=== PATIENT | female | born 1960 | race American Indian/Alaskan Native ===

== ENCOUNTER 2018-11-01 09:43 | Emergency (ER) | payer MEDICARE ==
[2018-11-01] MEDS ORDERED: PROVENTIL IH ONE (11:02)
[2018-11-01] MEDS ORDERED: TESSALON PERLES PO ONE (11:03)
[2018-11-01] MEDS ORDERED: SOLU-Medrol IM ONE (11:04)
[2018-11-01] MEDS ORDERED: ULTRAM PO ONE (11:16)
[2018-11-01 11:36] VITALS: BP 138/86
--- NOTE | 2018-11-01 11:49 | Emergency Department Report ---
ED General Adult HPI - General Chief complaint: Upper Respiratory Infection Stated complaint: FLU LIKE Time Seen by Provider: 11/01/18 10:43 Source: patient Mode of arrival: Ambulatory Limitations: No Limitations - History of Present Illness Initial comments: Patient presents to emergency department with a chief complaint of a cough for the last 3 days. Patient states that she has not had any relief from a cough [id number] medications. Patient states that she is coughing so much and so intensely that her chest hurts when she coughs. Patient denies any janine chest pain, abdominal pain, headache. -: Gradual Severity scale (0 -10): 1 Quality: aching Consistency: constant Improves with: none Worsens with: none Associated Symptoms: denies other symptoms Treatments Prior to Arrival: none - Related Data Previous Rx's Medication Instructions Recorded Last Taken Type ALBUTEROL Inhaler (OR & NICU) 2 puff IH Q4HR PRN #1 inhalation 11/01/18 Unknown Rx [ProAir HFA Inhaler] Benzonatate [Tessalon Perles] 100 mg PO Q8HR PRN #20 capsule 11/01/18 Unknown Rx Hydrocodone/Chlorphen P-Stirex 473 ml PO Q12HR #180 aidan.er.12h 11/01/18 Unknown Rx [Tussionex Pennkinetic Susp] predniSONE [Deltasone] 20 mg PO DAILY #15 tablet 11/01/18 Unknown Rx Allergies Allergy/AdvReac Type Severity Reaction Status Date / Time codeine Allergy Rash Verified 11/01/18 10:07 Penicillins Allergy Rash Verified 11/01/18 10:07 ED Review of Systems ROS: Stated complaint: FLU LIKE Other details as noted in HPI Comment: All other systems reviewed and negative Constitutional: denies: chills, fever Eyes: denies: eye pain, eye discharge, vision change ENT: denies: ear pain, throat pain Respiratory: cough. denies: shortness of breath, wheezing Cardiovascular: denies: chest pain, palpitations Endocrine: no symptoms reported Gastrointestinal: denies: abdominal pain, nausea, diarrhea Genitourinary: denies: urgency, dysuria, discharge Musculoskeletal: denies: back pain, joint swelling, arthralgia Skin: denies: rash, lesions Neurological: denies: headache, weakness, paresthesias Psychiatric: denies: anxiety, depression Hematological/Lymphatic: denies: easy bleeding, easy bruising ED Past Medical Hx - Social History Smoking Status: Current Every Day Smoker Substance Use Type: None - Medications Home Medications: Home Medications Medication Instructions Recorded Confirmed Last Taken Type ALBUTEROL Inhaler (OR & NICU) 2 puff IH Q4HR PRN #1 inhalation 11/01/18 Unknown Rx [ProAir HFA Inhaler] Benzonatate [Tessalon Perles] 100 mg PO Q8HR PRN #20 capsule 11/01/18 Unknown Rx Hydrocodone/Chlorphen P-Stirex 473 ml PO Q12HR #180 aidan.er.12h 11/01/18 Unknown Rx [Tussionex Pennkinetic Susp] predniSONE [Deltasone] 20 mg PO DAILY #15 tablet 11/01/18 Unknown Rx ED Physical Exam - General Limitations: No Limitations General appearance: alert, in no apparent distress - Head Head exam: Present: atraumatic, normocephalic - Eye Eye exam: Present: normal appearance, PERRL, EOMI - ENT ENT exam: Present: mucous membranes moist - Neck Neck exam: Present: normal inspection - Respiratory Respiratory exam: Present: normal lung sounds bilaterally, wheezes. Absent: respiratory distress, rales, rhonchi - Cardiovascular Cardiovascular Exam: Present: regular rate, normal rhythm. Absent: systolic murmur, diastolic murmur, rubs, gallop - GI/Abdominal GI/Abdominal exam: Present: soft, normal bowel sounds. Absent: distended, tenderness - Extremities Exam Extremities exam: Present: normal inspection - Back Exam Back exam: Present: normal inspection - Neurological Exam Neurological exam: Present: alert, oriented X3, CN II-XII intact. Absent: motor sensory deficit - Psychiatric Psychiatric exam: Present: normal affect, normal mood - Skin Skin exam: Present: warm, dry, intact, normal color. Absent: rash ED Course Vital Signs 11/01/18 11/01/18 11/01/18 10:05 11:35 12:28 Temperature 98.1 F Pulse Rate 103 H 81 Respiratory 16 16 20 Rate Blood Pressure 136/88 Blood Pressure 138/86 [Left] O2 Sat by Pulse 98 98 100 Oximetry ED Medical Decision Making - Radiology Data Radiology results: report reviewed - Medical Decision Making Discussed results with patient Patient states she has improved with the breathing treatment Critical care attestation.: If time is entered above; I have spent that time in minutes in the direct care of this critically ill patient, excluding procedure time. ED Disposition Clinical Impression: Bronchitis Disposition: DC-01 TO HOME OR SELFCARE Is pt being admited?: No Does the pt Need Aspirin: No Condition: Stable Instructions: Acute Bronchitis (ED) Additional Instructions: return if worse Prescriptions: ALBUTEROL Inhaler (OR & NICU) [ProAir HFA Inhaler] 2 puff IH Q4HR PRN #1 inhalation PRN Reason: Shortness Of Breath Benzonatate [Tessalon Perles] 100 mg PO Q8HR PRN #20 capsule PRN Reason: Cough Hydrocodone/Chlorphen P-Stirex [Tussionex Pennkinetic Susp] 473 ml PO Q12HR #180 aidan.er.12h predniSONE [Deltasone] 20 mg PO DAILY #15 tablet Referrals: PRIMARY CARE, [Primary Care Provider] - 3-5 Days [facility] [Provider Group] - 3-5 Days [facility] [Provider Group] - 3-5 Days MICHELE ENRIQUE MD [Staff Physician] - 3-5 Days Time of Disposition: 12:44
--- NOTE | 2018-11-01 12:05 | XRay Report ---
PORTABLE CHEST INDICATION: Cough. COMPARISON: None similar at this institution. FINDINGS: Portable, frontal chest radiograph suggests top normal heart size. Normal mediastinal and hilar contours. Clear lungs. Intact bones. Few extrinsic artifacts. CONCLUSION: No acute chest process, as described. Thank you for the opportunity to participate in this patient's care.
== END 2018-11-01 13:17 | disposition home or self-care (01) ==
LOC: ED 09:43
DX: J40 Bronchitis, not specified as acute or chronic (principal); F17.200 Nicotine dependence, unspecified, uncomplicated; Z88.5 Allergy status to narcotic agent; Z88.0 Allergy status to penicillin
CPT/HCPCS: 71045; 94640; 96372; 99283; J2930

== ENCOUNTER 2020-11-28 11:21 | Emergency (ER) | payer MEDICARE, OTHER ==
[2020-11-28] MEDS ORDERED: IBUPROFEN 800 MG TAB PO ONE (11:31)
[2020-11-28] MEDS ORDERED: oxyCODONE /ACETAMINOPHEN 5-325MG TAB PO ONE (11:33)
--- NOTE | 2020-11-28 11:54 | Emergency Department Report ---
ED Extremity Problem HPI - General Chief complaint: Extremity Injury, Lower Stated complaint: FALL/RT FOOT PAIN Time Seen by Provider: 11/28/20 11:27 Source: EMS Mode of arrival: Stretcher Limitations: No Limitations - History of Present Illness Initial comments: Patient is a 60-year-old F [place] female with no significant past medical history who is here status post a fall in the shower. Patient states she fell and she has pain in the right midfoot with some mild lateral ankle discomfort as well. Pain is estimated at 6 out of 10 in severity. She has not been able to bear weight. Patient states she has no other injury at this time. - Related Data Previous Rx's Medication Instructions Recorded Last Taken Type Albuterol Mdi (or & Nicu Only) 2 puff IH Q4HR PRN #1 inhalation 11/01/18 Unknown Rx [ProAir HFA Inhaler] Benzonatate [Tessalon Perles] 100 mg PO Q8HR PRN #20 capsule 11/01/18 Unknown Rx Hydrocodone/Chlorphen P-Stirex 473 ml PO Q12HR #180 aidan.er.12h 11/01/18 Unknown Rx [Tussionex Pennkinetic Susp] predniSONE [Deltasone] 20 mg PO DAILY #15 tablet 11/01/18 Unknown Rx HYDROcodone/APAP 5-325 [Mulino 1 each PO Q6HR PRN #14 tablet 11/28/20 Unknown Rx 5/325] Ketorolac [Toradol] 10 mg PO Q6H PRN #12 tablet 11/28/20 Unknown Rx Allergies Allergy/AdvReac Type Severity Reaction Status Date / Time codeine Allergy Rash Verified 11/01/18 10:07 Penicillins Allergy Rash Verified 11/01/18 10:07 ED Review of Systems ROS: Stated complaint: FALL/RT FOOT PAIN Other details as noted in HPI Comment: All other systems reviewed and negative ED Past Medical Hx - Social History Smoking Status: Current Every Day Smoker Substance Use Type: None - Medications Home Medications: Home Medications Medication Instructions Recorded Confirmed Last Taken Type Albuterol Mdi (or & Nicu Only) 2 puff IH Q4HR PRN #1 inhalation 11/01/18 Unknown Rx [ProAir HFA Inhaler] Benzonatate [Tessalon Perles] 100 mg PO Q8HR PRN #20 capsule 11/01/18 Unknown Rx Hydrocodone/Chlorphen P-Stirex 473 ml PO Q12HR #180 aidan.er.12h 11/01/18 Unknown Rx [Tussionex Pennkinetic Susp] predniSONE [Deltasone] 20 mg PO DAILY #15 tablet 11/01/18 Unknown Rx HYDROcodone/APAP 5-325 [Mulino 1 each PO Q6HR PRN #14 tablet 11/28/20 Unknown Rx 5/325] Ketorolac [Toradol] 10 mg PO Q6H PRN #12 tablet 11/28/20 Unknown Rx ED Physical Exam - General Limitations: No Limitations General appearance: alert, in no apparent distress - Head Head exam: Present: atraumatic, normocephalic - Eye Eye exam: Present: normal appearance, PERRL, EOMI - ENT ENT exam: Present: mucous membranes moist - Neck Neck exam: Present: normal inspection - Respiratory Respiratory exam: Present: normal lung sounds bilaterally. Absent: respiratory distress, wheezes, rales, rhonchi - Cardiovascular Cardiovascular Exam: Present: regular rate - GI/Abdominal GI/Abdominal exam: Absent: distended - Extremities Exam Extremities exam: Present: normal inspection - Expanded Lower Extremity Exam Right Ankle exam: Present: swelling (lateral malleolus) Foot/Toe exam: Present: tenderness (,id foot laterally), swelling - Back Exam Back exam: Present: normal inspection - Neurological Exam Neurological exam: Present: alert, oriented X3 - Psychiatric Psychiatric exam: Present: normal affect, normal mood - Skin Skin exam: Present: warm, dry, intact, normal color. 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 COMPARISON: None available. FINDINGS: Right foot: Acute mildly displaced fractures of the third and fourth metatarsal bases. There is also irregularity of the medial second metatarsal base with abnormal widening of Lisfranc interval. No additional fracture is identified. Mild soft tissue swelling of the dorsum of the foot. Right ankle: No acute fracture or malalignment. Ankle mortise is symmetric. Talar dome is intact. No focal soft tissue abnormality. IMPRESSION: Fractures of the second through fourth metatarsal bases with mild abnormal widening of the Lisfranc interval, compatible with Lisfranc injury. Signer Name: Darius Zamora MD Signed: 11/28/2020 11:29 AM Workstation Name: [email or web address] - Medical Decision Making Patient with a right-sided Lisfranc injury. Spoke with Dr. Polanco with podiatry and states the patient should be splinted and be nonweightbearing he will see the patient in next several days. He did request a CT of the foot be performed which will be done. Patient discharged stable condition. Critical care attestation.: If time is entered above; I have spent that time in minutes in the direct care of this critically ill patient, excluding procedure time. ED Disposition Clinical Impression: Lisfranc fracture Disposition: DC-01 TO HOME OR SELFCARE Is pt being admited?: No Does the pt Need Aspirin: No Condition: Stable Instructions: Lisfranc Injury Referrals: GABRIEL POLANCO DPM [Staff Physician] - 2-3 Days Time of Disposition: 15:14
--- NOTE | 2020-11-28 12:33 | XRay Report ---
XR ankle 2V RT, XR foot 3+V RT INDICATION / CLINICAL INFORMATION: fall injury. COMPARISON: None available. FINDINGS: Right foot: Acute mildly displaced fractures of the third and fourth metatarsal bases. There is also irregularity of the medial second metatarsal base with abnormal widening of Lisfranc interval. No add itional fracture is identified. Mild soft tissue swelling of the dorsum of the foot. Right ankle: No acute fracture or malalignment. Ankle mortise is symmetric. Talar dome is intact. No focal soft tissue abnormality. IMPRESSION: Fractures of the second through fourth metatarsal bases with mild abnormal widening of the Lisfranc i nterval, compatible with Lisfranc injury. Signer Name: Darius Zamora MD Signed: 11/28/2020 12:29 PM Workstation Name: [id number]
--- NOTE | 2020-11-28 15:55 | Cat Scan Report ---
CT LOWER EXTREMITY RIGHT WITHOUT CONTRAST HISTORY: Lisfranc fracture, fall, injury TECHNIQUE: Helical CT without IV contrast. All CT scans at this location are performed using CT dose reduction for ALARA by means of automated exposure control. COMPARISON: Right foot films performed the same day FINDINGS: Comminuted fractures are identified at the bases of metatarsals 2, 3 and 4. There is mild displacemen t measuring 2-3 mm at the fracture site of the fourth metatarsal base. The remaining fractures are no t significantly displaced. There are multiple small chip fractures from the distal surface of the med ial cuneiform. The remaining bony structures in the foot are intact. There appears to be anatomic ali gnment at the base of the second metatarsal and second cuneiform. I am not entirely convinced of a Li sfranc injury/subluxation. There is diffuse soft tissue swelling. The musculotendinous structures are unremarkable on noncontras t CT. IMPRESSION: Multiple fractures in the midfoot including the metatarsal bases 2, 3 and 4 and multiple small chip f ractures from the medial cuneiform. No convincing Lisfranc injury as there appears to be anatomic ali gnment in the midfoot. If further evaluation is needed, MRI could be obtained. Signer Name: Chandrakant Ham Jr, MD Signed: 11/28/2020 3:51 PM Workstation Name: [id number]
[2020-11-28 17:59] VITALS: BP 114/72
== END 2020-11-28 17:59 | disposition home or self-care (01) ==
LOC: ED 11:21
DX: S92.321A Displaced fracture of second metatarsal bone, right foot, initial encounter for closed fracture (principal); S92.331A Displaced fracture of third metatarsal bone, right foot, initial encounter for closed fracture; S92.341A Displaced fracture of fourth metatarsal bone, right foot, initial encounter for closed fracture; F17.200 Nicotine dependence, unspecified, uncomplicated; Z79.899 Other long term (current) drug therapy; Z88.0 Allergy status to penicillin; Z88.8 Allergy status to other drugs, medicaments and biological substances; W18.2XXA Fall in (into) shower or empty bathtub, initial encounter; Y93.89 Activity, other specified; Y92.89 Other specified places as the place of occurrence of the external cause; Y99.8 Other external cause status